=== PATIENT | male | born 1985 | race Caucasian/White ===

== ENCOUNTER 2017-05-27 01:33 | Emergency (ER) | payer OTHER ==
[~2017-05-27] VITALS: Ht 165.1 cm; Wt 72.6 kg
[2017-05-27 02:39] LABS: EOSINOPHILS # (AUTO) 0.1 K/uL (0.0-0.7); HEMATOCRIT 43.7 % (36.7-47.1); HEMOGLOBIN 14.7 g/dL (12.5-16.3); LYMPHOCYTES # (AUTO) 1.8 K/uL (20.0-40.0); MEAN CORPUSCULAR HEMOGLOBIN 28.6 uug (23.8-33.4); MEAN CORPUSCULAR HGB CONC 34 g/dL (32.5-36.3); MONOCYTES # (AUTO) 0.4 K/uL (2.0-10.0); MONOCYTES % (AUTO) 7.1 % (0.0-11.0); NEUTROPHILS # (AUTO) 2.7 K/uL (1.8-8.9); NEUTROPHILS % (AUTO) 53.9 % (38.5-71.5); PLATELET COUNT (AUTO) 276 K/uL (152-348); RED BLOOD CELL COUNT(AUTO) 5.14 MIL/uL (4.06-5.63)
[2017-05-27] MEDS ORDERED: KETOROLAC TROMETHAMINE 30 MG INJ IM ONE (02:45)
[2017-05-27] MEDS ORDERED: HYDROCODONE/APAP 5-325MG TABLET PO ONE (02:45)
[2017-05-27 02:53] LABS: ALANINE AMINOTRANSFERASE 43 U/L (16-63); ALKALINE PHOSPHATASE 55 U/L (50-136); ASPARTATE AMINOTRANSFERASE 44 U/L (15-37); BILIRUBIN,DIRECT 0.1 mg/dL (0.0-0.2); BILIRUBIN,TOTAL 0.4 mg/dL (0.2-1.0); CARBON DIOXIDE 27 mmol/L (21-32); CHLORIDE 105 mmol/L (98-107); CREATININE 0.9 mg/dL (0.6-1.3); GLUCOSE 76 mg/dL (74-106); POTASSIUM 3.6 mmol/L (3.5-5.1); TOTAL PROTEIN, SERUM 8.1 g/dL (6.4-8.2); UREA NITROGEN, BLOOD 11 mg/dL (7-18)
[2017-05-27 03:01] LABS: ETHANOL 44 MG/DL (0-0)
[2017-05-27] MEDS ORDERED: KETOROLAC TROMETHAMINE 30 MG INJ ONE (03:01)
[2017-05-27] MEDS ORDERED: HYDROCODONE/APAP 5-325MG TABLET ONE (03:01)
[2017-05-27 03:05] LABS: *CANNABINOID, URINE NEGATIVE (NEGATIVE); *COCCAINE, URINE NEGATIVE (NEGATIVE); *PHENCYCLIDINE SCREEN,URINE NEGATIVE (NEGATIVE)
[2017-05-27 03:25] LABS: ACETAMINOPHEN < 2.0 ug/mL (10-30)
[2017-05-27 03:27] LABS: *AMPHETAMINE, URINE POSITIVE (NEGATIVE); *BARBITURATE, URINE NEGATIVE (NEGATIVE); *OPIATE, URINE NEGATIVE (NEGATIVE)
[2017-05-27] MEDS ORDERED: QUETIAPINE FUMARATE 25 MG TABLET PO ONE (03:45)
[2017-05-27] MEDS ORDERED: QUETIAPINE FUMARATE 25 MG TABLET ONE (04:05)
[2017-05-27] MEDS ORDERED: HYDROCODONE/APAP 10-325 MG TABLET PO ONE (06:15)
--- NOTE | 2017-05-27 06:16 | NUR ---
Patient discharged to home in stable conditon. Written and verbal after care instructions given. Patient verbalizes understanding of instructions.
[2017-05-27] MEDS ORDERED: HYDROCODONE/APAP 10-325 MG TABLET ONE (06:26)
== END 2017-05-27 06:28 | disposition home or self-care (01) ==
LOC: ER 01:36
DX: F25.9 Schizoaffective disorder, unspecified (principal); F15.10 Other stimulant abuse, uncomplicated; R45.851 Suicidal ideations; R45.850 Homicidal ideations; Z59.0 Homelessness
CPT/HCPCS: 36415; 80048; 80076; 80307; 85025; 96372; 99284; A4663; G0480 ×2; G0481; J1885

== ENCOUNTER 2017-06-14 00:31 | Emergency (ER) | payer OTHER ==
[~2017-06-14] VITALS: Ht 165.1 cm; Wt 78.0 kg
[2017-06-14] MEDS ORDERED: QUETIAPINE FUMARATE 25 MG TABLET PO ONE (01:15)
[2017-06-14] MEDS ORDERED: HYDROCODONE/APAP 10-325 MG TABLET PO ONE (01:15)
[2017-06-14] MEDS ORDERED: GABAPENTIN 400 MG CAPSULE PO ONE (01:15)
[2017-06-14 01:24] VITALS: BP 122/78
--- NOTE | 2017-06-14 01:24 | NUR ---
MSE COMPLETED, MEDS ADMINISTERED/RX X4 GIVEN. PT AMBULATED W/O DIFF/TOOK ALL BELONGINGS.
[2017-06-14] MEDS ORDERED: HYDROCODONE/APAP 10-325 MG TABLET ONE (01:31)
[2017-06-14] MEDS ORDERED: GABAPENTIN 400 MG CAPSULE ONE (01:31)
[2017-06-14] MEDS ORDERED: QUETIAPINE FUMARATE 25 MG TABLET ONE (01:32)
== END 2017-06-14 01:20 | disposition home or self-care (01) ==
LOC: ER 00:32
DX: G89.29 Other chronic pain (principal); F29 Unspecified psychosis not due to a substance or known physiological condition; F15.10 Other stimulant abuse, uncomplicated; F32.9 Major depressive disorder, single episode, unspecified; G62.9 Polyneuropathy, unspecified; Z59.0 Homelessness; Z91.14 Patient's other noncompliance with medication regimen; F17.200 Nicotine dependence, unspecified, uncomplicated; Z95.5 Presence of coronary angioplasty implant and graft
CPT/HCPCS: A4663

== ENCOUNTER 2021-09-13 00:27 | Emergency (ER) | payer OTHER ==
[~2021-09-13] VITALS: Ht 165.1 cm; Wt 77.1 kg
--- NOTE | 2021-09-13 01:05 | NUR ---
ROCÍO LIANG at bedside for MSE.
[2021-09-13] MEDS ORDERED: IBUP-1957 PO (01:25)
[2021-09-13] MEDS ORDERED: IBUPROFEN 800 MG TABLET PO ONE (01:30)
--- NOTE | 2021-09-13 01:39 | NUR ---
Patient given written and verbal discharge instructions. Patient verbalizes understanding of instructions. Patient is ambulatory with steady gait. Refuses offer of half-way placement. Patient given list of available shelters in surrounding area. FIORELLA ZAMBRANO.
[2021-09-13 01:41] VITALS: BP 130/80
[2021-09-13] MEDS ORDERED: QUET200T PO (14:26)
[2021-09-13] MEDS ORDERED: GABA600T12 PO (14:26)
== END 2021-09-13 01:40 | disposition home or self-care (01) ==
LOC: ER 00:29
DX: M54.9 Dorsalgia, unspecified (principal); Z59.02 Unsheltered homelessness; F17.200 Nicotine dependence, unspecified, uncomplicated; F25.9 Schizoaffective disorder, unspecified; Z79.899 Other long term (current) drug therapy; Z95.5 Presence of coronary angioplasty implant and graft; G62.9 Polyneuropathy, unspecified
CPT/HCPCS: A4663

== ENCOUNTER 2021-09-13 13:54 | Emergency (ER) | payer OTHER ==
[~2021-09-13] VITALS: Ht 165.1 cm; Wt 77.1 kg
[~2021-09-13 13:54] MED LIST: IBUP-1957 PO
[2021-09-13] MEDS ORDERED: GABA600T12 PO (14:26)
[2021-09-13] MEDS ORDERED: QUET200T PO (14:26)
--- NOTE | 2021-09-13 14:34 | NUR ---
DR HINOJOSA AT BEDSIDE TO EVALUATE PATIENT.
--- NOTE | 2021-09-13 15:41 | NUR ---
Manager Digital assumes care: patient is not found in room 1B, notified. Eloped?
== END 2021-09-13 15:41 | disposition home or self-care (01) ==
LOC: ER 13:54
DX: F32.A Depression, unspecified (principal); Z59.00 Homelessness unspecified; F17.200 Nicotine dependence, unspecified, uncomplicated; F25.9 Schizoaffective disorder, unspecified; Z95.5 Presence of coronary angioplasty implant and graft; Z79.899 Other long term (current) drug therapy
CPT/HCPCS: A4663